=== PATIENT | female | born 1990 | race Caucasian/White ===

== ENCOUNTER → 2016-03-06 | Outpatient (CLI) | payer BC ==
[~2016-03-06] MED LIST: ACET50TA PO; COLA50CA3 PO; IBUP40TA PO; IBUP80TA FT; LEVOTHYROID PO; MULTTAB20 PO; PERCOCET FT; PERCOCET PO; VITAPRTA PO
--- NOTE | 2016-03-06 16:08 | REP ---
OB ULTRASOUND: Real-time sonographic evaluation of the gravid uterus is performed. There is a single living intrauterine gestation. The estimated gestational age is 19 weeks 3 days based on today's ultrasound measurements EDC 07/28/2016. BPD 46 mm = 20 weeks 0 days. HC 171 mm = 19 weeks 5 days. AC 142 mm = 19 weeks 4 day. Femur length 31 mm = 19 weeks 3 days. HC/AC ratio 1.20 within normal range. Estimated weight 297 grams, 49th percentile. Cervix is closed measures 3.5 cm in length. heart rate 139 beats per minute. SEEN/GROSSLY UNREMARKABLE Lateral ventricles Yes Posterior fossa Yes Upper lip Yes Four-chamber heart No LVOT No RVOT No Stomach Yes Cord insertion Yes Three vessel cord Yes Kidneys Yes Bladder Yes Spine Yes position: Vertex Placenta: Anterior and grade 0 with no previa or abruption. Amniotic fluid: Within normal limits. Signed by Chalino Elam MD 03/06/2016 04:29 P
== END ==
LOC: M SMT 12:50
PROVIDERS: ATTEND Advanced Practice Midwife
DX: Z34.82 Encounter for supervision of other normal pregnancy, second trimester (principal)

== ENCOUNTER → 2016-04-10 | Outpatient (CLI) | payer BC ==
--- NOTE | 2016-04-10 15:15 | REP ---
OBSTETRIC SONOGRAPHY: HISTORY: Supervision of followup anatomy. FINDINGS: Scanning through the gravid uterus demonstrates a viable single intrauterine gestation in a breech lie. motion is observed and heart rate is recorder 136 beats per minute. An anterior grade 0 placenta is seen. Amniotic fluid is subjectively normal. Closed cervical length is 4.5 cm. No extrauterine abnormalities observed. There has been appropriate interval growth. No anomaly is seen. The following anatomic structures are identified and felt to be sonographically unremarkable: cranium, choroid plexus, cavum, cerebellum and posterior fossa, lungs, four-chamber heart with left and right ventricular outflow tract views, left-sided stomach, three-vessel cord, kidneys and bladder, spine, upper and lower extremities. Biometry Chart: BPD 6.2 cm = 25 weeks 1 day HC 22.5 cm = 24 weeks 3 days AC 20.2 cm = 24 week 6 days FL 4.3 cm = 24 weeks 0 days HL 4.2 cm = 25 weeks 1 day CD 2.7 cm = 24 weeks 0 days HC/AC ratio normal 1.11 Cephalic index normal 0.78. Estimated weight 708 grams, 1 pound 8 ounces, 46 percentile for 24 weeks 3 days. IMPRESSION: Viable single intrauterine gestation at 24 weeks 1 day by today's composite criteria. Expected gestational age estimate based on prior sonography is 24 weeks 3 days. [place] by prior sonography July 28, 2016. Signed by Ricardo Driver MD 04/10/2016 04:53 P
== END ==
LOC: M SMT 12:47
PROVIDERS: ATTEND Advanced Practice Midwife
DX: Z34.82 Encounter for supervision of other normal pregnancy, second trimester (principal)

== ENCOUNTER → 2016-05-01 | Outpatient (CLI) | payer BC ==
[2016-05-01 13:33] LABS: MEAN CORPUSCULAR HGB CONC 33.4 g/dl (32.0-36.5); MEAN CORPUSCULAR VOLUME 86.8 fl (80.0-96.0); RED CELL DISTRIBUTION WIDTH 12.9 % (11.5-14.5); WHITE BLOOD COUNT 7.6 K/mm3 (4.0-10.0)
== END ==
LOC: M SMT 08:30
PROVIDERS: ATTEND Advanced Practice Midwife
DX: Z34.82 Encounter for supervision of other normal pregnancy, second trimester (principal)

== ENCOUNTER → 2016-06-30 | Outpatient (REF) | payer BC | LOC: M LAB REF 13:10 | PROVIDERS: ATTEND Advanced Practice Midwife | DX: Z34.83 Encounter for supervision of other normal pregnancy, third trimester (principal) ==

== ENCOUNTER 2016-08-05 06:55 | Inpatient (IN) | payer BC, MEDICAID ==
[~2016-08-05] VITALS: Ht 170.2 cm; Wt 107.0 kg
[2016-08-05] VITALS (21 sets, daily range): BP systolic 120–158; BP diastolic 66–95
[2016-08-05] MEDS ORDERED: RANI15TA PO (07:19)
[2016-08-05] MEDS: miSOPROStol 50 MCG 1/2 TAB (S0191) PO SCH ×2 (08:42→13:11)
--- NOTE | 2016-08-05 08:49 | HPE ---
DATE OF ADMISSION: 08/05/2016 Selin is a 26-year-old, 2, para 1-0-0-1, at 41-1/7 weeks gestation with an estimated date of confinement (EDC) of 07/28/2016 based on first trimester ultrasound. She presents to labor and delivery today for induction of labor per consult with Dr. Noemi Sanon due to post-term . She does report some occasional contractions. Denies vaginal bleeding and leakage of fluid. The fetus has been active. care initiated at [facility] in the first trimester. course has been uncomplicated. OBSTETRICAL HISTORY: May 2013, at 40-4/7 weeks gestation, she had a spontaneous vaginal delivery for a 7 pound 2 ounce male. OB LABS: Blood type O+, antibody screen negative. Pap was normal. Rubella immune, VDRL nonreactive. Urine culture no growth. Hepatitis B surface antigen negative, HIV negative. Hepatitis C antibody nonreactive. Gonorrhea and chlamydia negative. She did decline all genetic serum screening labs. Gestational diabetic screening normal at 113 and her GBS is negative. PAST MEDICAL HISTORY: Seasonal allergies, abnormal Pap, childhood varicella. SURGERIES: None. FAMILY HISTORY: Seasonal allergies. SOCIAL HISTORY: The patient is . Her is at bedside and supportive. She is a nonsmoker. Denies alcohol and drug use. No history of sexually transmitted infections and denies history of abuse physical, sexual and emotional. ALLERGIES: NO KNOWN DRUG ALLERGIES. CURRENT MEDICATIONS: - vitamins OBJECTIVE: Temperature 98.9, pulse 82, respirations 18, blood pressure 130/78. She is alert and oriented times three, in no apparent distress. heart rate 140 with moderate variability, positive accelerations observed. No decelerations observed. Contractions every 4-5 minutes. Sterile vaginal exam: 2 cm dilated, 50% effaced, minus 3 station. Membranes are intact. No bloody show with exam. Her abdomen is gravid, cephalic presentation with an estimated weight of 8 pounds. ASSESSMENT: Intrauterine at 41-1/7 weeks gestation, heart rate category 1, post-term . PLAN: Admit patient to labor and delivery. Labs. Out of bed ad kaila. Regular diet at this time. Start misoprostol for cervical ripening 15 mcg every 4 hours. I did review risks to induction that include increased risk for section, intolerance to labor, failed induction. The patient has had all of her questions answered and does desire to proceed with induction at this time. I do anticipate an active labor and a spontaneous vaginal delivery.
[2016-08-05 08:53] LABS: MEAN CORPUSCULAR HEMOGLOBIN 27.2 pg (27.0-33.0); MEAN CORPUSCULAR HGB CONC 33.4 g/dl (32.0-36.5); MEAN CORPUSCULAR VOLUME 81.4 fl (80.0-96.0); RED CELL DISTRIBUTION WIDTH 14.4 % (11.5-14.5); WHITE BLOOD COUNT 7.6 K/mm3 (4.0-10.0)
[2016-08-05] MEDS ORDERED: LR 1,000 ML IV SCH (18:05)
[2016-08-05] MEDS ORDERED: OXYTOCIN DRIP 30 UNITS in APPROPRIATE DILUENT 1 EA IV SCH ×2 (18:15→20:25)
[2016-08-05] MEDS ORDERED: METHYLERGONOVINE MALEATE 0.2 MG TAB PO PRN (20:30)
[2016-08-05] MEDS ORDERED: DIBUCAINE 1% OINTMENT 30GM TOP PRN (20:30)
[2016-08-05] MEDS ORDERED: DOCUSATE SODIUM 100 MG CAP PO PRN (20:30)
[2016-08-05] MEDS ORDERED: MEASLES,MUMPS,RUBELLA VACCINE INJ (MMR-II) (90707) SC SCH (20:30)
[2016-08-05] MEDS ORDERED: LIDOCAINE 1% MDV INJ 50 ML VIAL INFIL ONE (20:30)
[2016-08-05] MEDS ORDERED: RHOGAM 300 MCG (1500 IU) INJ (J2790) IM SCH (20:30)
[2016-08-05] MEDS: IBUPROFEN 800 MG TAB PO PRN (20:31)
--- NOTE | 2016-08-06 05:38 | DN ---
DATE: 08/05/2016 Selin is a 26-year-old 2, para 2-0-0-2 now, who was admitted to labor and delivery for induction of labor due to post-term . Two doses of five oral misoprostol were provided and labor did ensue. She had spontaneous rupture of membranes for clear odorless fluid at 18:39. She progressed to full dilation at 19:34. She pushed to a normal spontaneous vaginal delivery of a live male in occiput anterior (OA) position with restitution to left occiput transverse (LOT) position at 09:36. The shoulders delivered with gentle downward traction and the corpus immediately followed. The was placed on maternal abdomen crying and active. His mouth and nares were bulb suctioned. The cord was clamped time two and cut by the father of the baby. A spontaneous expulsion of intact placenta with three-vessel cord was noted. Uterine hemostasis achieved with intravenous (IV) Pitocin rapid infusion and uterine fundal massage. Estimated blood loss 300 mL. Perineum and vagina were inspected, noted to have a first-degree perineal laceration that was infiltrated with 1% lidocaine and then repaired with 3-0 Rapide in the usual fashion. Kimball male weighed 3910 grams, 8 pounds 10 ounces, scores 8 and 9. Mom is going to breastfeed her son and the family have named him Taqueria. At the close of delivery, lap counts, needle counts and instrument counts were correct and verified.
[2016-08-06 05:55] VITALS: BP 121/71
[2016-08-06] MEDS: IBUPROFEN 800 MG TAB PO PRN ×2 (05:57→20:44)
[2016-08-06] MEDS: PRENATAL VITAMINS CHEWABLE TABLET PO SCH (08:13)
[2016-08-06] MEDS: ACETAMINOPHEN 500 MG TAB PO PRN ×2 (08:14→20:45)
[2016-08-06 18:41] VITALS: BP 137/82
[2016-08-06 20:45] VITALS: BP 137/82
[2016-08-07 06:10] VITALS: BP 111/61
[2016-08-07] MEDS ORDERED: ACET50TA PO (07:44)
[2016-08-07] MEDS ORDERED: COLA100C5 PO (07:44)
[2016-08-07] MEDS ORDERED: IBUP-1114 PO (07:44)
[2016-08-07] MEDS ORDERED: PRENTAB9 PO (07:44)
[2016-08-07] MEDS: PRENATAL VITAMINS CHEWABLE TABLET PO SCH (09:00)
== END 2016-08-07 12:25 | disposition home or self-care (01) | DRG 560 ==
LOC: M LDI 06:55 → M OBS 21:33
PROVIDERS: ADMIT Obstetrics & Gynecology; ATTEND Obstetrics & Gynecology
PROC: 10E0XZZ Delivery of Products of Conception, External Approach (ICD-10-PCS; principal; 2016-08-05)
PROC: 3E0DXGC Introduction of Other Therapeutic Substance into Mouth and Pharynx, External Approach (ICD-10-PCS; 2016-08-05)
PROC: 0HQ9XZZ Repair Perineum Skin, External Approach (ICD-10-PCS; 2016-08-05)
DX: O48.0 Post-term pregnancy (principal); Z37.0 Single live birth; Z3A.41 41 weeks gestation of pregnancy; Z79.899 Other long term (current) drug therapy; O70.0 First degree perineal laceration during delivery

== ENCOUNTER → 2017-03-09 | Outpatient (REF) | payer BC | LOC: M LAB REF 17:11 | DX: J02.9 Acute pharyngitis, unspecified (principal); J06.9 Acute upper respiratory infection, unspecified | CPT/HCPCS: 87077 ==

== ENCOUNTER → 2017-07-13 | Outpatient (REF) | payer BC | LOC: M LAB REF 07-14 09:37 | DX: Z12.4 Encounter for screening for malignant neoplasm of cervix (principal) | CPT/HCPCS: G0123 ==

== ENCOUNTER → 2017-11-04 | Outpatient (CLI) | payer BC | LOC: M CLY 14:48 | DX: M25.552 Pain in left hip (principal) | CPT/HCPCS: 73502 ==

== ENCOUNTER → 2018-04-27 | Outpatient (REF) | payer BC ==
[~2018-04-27] MED LIST changes: +COLA100C5 PO; +IBUP-1114 PO; +MAPA500T2 PO; +PRENTAB9 PO; +RANI15TA PO
[2018-04-28 11:42] LABS: BASO % 0.4 % (0.0-1.0); EOS # 0.2 10^3/uL (0.0-0.50); EOS % 1.6 % (0.0-3.0); HEMATOCRIT 39.4 % (36.0-47.0); HEMOGLOBIN 13.4 g/dl (12.0-15.5); LYMPH # 1.8 10^3/uL (1.5-6.5); LYMPH % 17.4 % (24.0-44.0); MEAN CORPUSCULAR VOLUME 88.1 fl (80.0-96.0); MONO # 0.7 10^3/uL (0.0-0.8); MONO % 6.9 % (0.0-5.0); NEUTROPHILS # 7.5 10^3/uL (1.8-7.7); NEUTROPHILS % 73.3 % (36.0-66.0); PLATELET COUNT, AUTOMATED 201 10^3/uL (150-450); RED BLOOD COUNT 4.47 10^6/uL (4.00-5.40); WHITE BLOOD COUNT 10.2 10^3/uL (4.0-10.0)
[2018-04-28 12:16] LABS: ALBUMIN 3.9 GM/DL (3.2-5.2); ALT/SGPT 24 U/L (12-78); AMYLASE 57 U/L (25-115); BILIRUBIN,TOTAL 0.5 MG/DL (0.2-1.0); BLOOD UREA NITROGEN 13 MG/DL (7-18); CALCIUM LEVEL 8.7 MG/DL (8.5-10.1); CARBON DIOXIDE LEVEL 26 MEQ/L (21-32); CHLORIDE LEVEL 108 MEQ/L (98-107); CREATININE FOR GFR 0.77 MG/DL (0.55-1.30); GLOMERULAR FILTRATION RATE > 60.0 (>60); GLUCOSE, FASTING 84 MG/DL (70-100); LIPASE 157 U/L (73-393); SODIUM LEVEL 141 MEQ/L (136-145); TOTAL PROTEIN 6.8 GM/DL (6.4-8.2)
== END ==
LOC: M SFHCCLAY 15:51
PROVIDERS: ATTEND Nurse Practitioner Family
DX: R10.11 Right upper quadrant pain (principal); J02.9 Acute pharyngitis, unspecified

== ENCOUNTER → 2018-05-02 | Outpatient (CLI) | payer BC ==
--- NOTE | 2018-05-02 09:39 | REP ---
Right upper quadrant sonography: History: However quadrant pain. Evaluate gallbladder. Comparison study: No comparison Findings: Scanning through the right upper quadrant of the abdomen demonstrates a normal sized, thin-walled gallbladder without evidence of stone or polyp. Common bile duct is normal measuring 0.3 cm in greatest diameter. No focal liver lesion is seen. Liver size is normal. No pancreatic abnormality is observed. No right renal abnormality is seen. There is no evidence of ascites. The right kidney measures 11.6 x 6.2 x 5.6 cm. Impression: Negative right upper quadrant sonography. Electronically Signed by Ricardo Driver MD 05/02/2018 09:31 A
== END ==
LOC: M RAD 08:31
PROVIDERS: ATTEND Nurse Practitioner Family
DX: R10.11 Right upper quadrant pain (principal)

== ENCOUNTER → 2018-07-26 | Outpatient (REF) | payer BC ==
[~2018-07-26] MED LIST changes: -ACET50TA PO; -IBUP40TA PO; +MAPA500T17 PO; +OXYC1TAB23 FT; +OXYC1TAB23 PO; -PERCOCET FT; -PERCOCET PO
== END ==
LOC: M LAB REF 17:41
PROVIDERS: ATTEND Advanced Practice Midwife
DX: Z12.4 Encounter for screening for malignant neoplasm of cervix (principal)

== ENCOUNTER 2019-01-11 09:13 | Emergency (ER) | payer BC ==
[~2019-01-11] VITALS: Ht 170.2 cm; Wt 97.7 kg
[2019-01-11 10:08] LABS: BASO % 0.5 % (0.0-1.0); EOS # 0.1 10^3/uL (0.0-0.5); EOS % 1.4 % (0.0-3.0); HEMATOCRIT 40.7 % (36.0-47.0); LYMPH # 1.5 10^3/uL (1.5-5.0); LYMPH % 23.5 % (24.0-44.0); MEAN CORPUSCULAR HGB CONC 34.4 g/dl (32.0-36.5); MEAN CORPUSCULAR VOLUME 87.2 fl (80.0-96.0); MONO # 0.4 10^3/uL (0.0-0.8); MONO % 5.5 % (0.0-5.0); NEUTROPHILS # 4.5 10^3/uL (1.5-8.5); NEUTROPHILS % 68.9 % (36.0-66.0); PLATELET COUNT, AUTOMATED 191 10^3/uL (150-450); RED BLOOD COUNT 4.67 10^6/uL (4.00-5.40); WHITE BLOOD COUNT 6.5 10^3/uL (4.0-10.0)
[2019-01-11 10:23] LABS: ALBUMIN 3.7 GM/DL (3.2-5.2); ALT/SGPT 22 U/L (12-78); BILIRUBIN,DIRECT 0.2 MG/DL (0.0-0.2); BILIRUBIN,TOTAL 0.5 MG/DL (0.2-1.0); LIPASE 85 U/L (73-393); TOTAL PROTEIN 6.6 GM/DL (6.4-8.2)
[2019-01-11 10:40] LABS: HCG, SERUM QUALITATIVE NEGATIVE (NEGATIVE)
--- NOTE | 2019-01-11 10:42 | REP ---
Clinical: Right upper quadrant pain. Technique: Real time boyce scale ultrasound examination using curved array transducer with color evaluation. Findings: Liver and pancreas are normal in contour, size, echogenicity without focal hepatic or pancreatic lesion identified. The gallbladder is normal and without gallstones, wall thickening, or pericholecystic fluid. No biliary ductal dilatation is appreciated and the common bile duct measures 3.8 mm diameter. The right kidney is normal in reniform shape without hydronephrosis and measures 11.4 x 4.7 x 4.7 cm. No ascites. Impression: Normal right upper quadrant ultrasound. Normal gallbladder and biliary system. Electronically Signed by Salbador Reynolds MD 01/11/2019 10:33 A
[2019-01-11 11:01] VITALS: BP 130/78
== END 2019-01-11 11:08 | disposition home or self-care (01) ==
LOC: M ED 09:13
DX: G89.29 Other chronic pain (principal); R10.11 Right upper quadrant pain; K27.9 Peptic ulcer, site unspecified, unspecified as acute or chronic, without hemorrhage or perforation

== ENCOUNTER → 2019-01-24 | Outpatient (CLI) | payer BC ==
--- NOTE | 2019-01-24 11:14 | REP ---
Hepatobiliary scan and gallbladder ejection fraction: History: Right upper quadrant pain Technique: 6.6 mCi of technetium-99m mebrofenin was injected and sequential anterior images are acquired. 65 minutes after the mebrofenin injection, the patient consumed 8 ounces Ensure and an additional 60 minutes of imaging was acquired. Regions of interest are plotted around the gallbladder. Findings: The initial hepatocellular parenchymal uptake phase is normal and homogeneous. Intra- and extra-hepatic bile ducts are labeled by the 10 -minute image. The gallbladder is first labeled on the 10 -minute image. There is normal washout from the liver parenchyma into the gallbladder and small intestine on subsequent images. The gallbladder ejection fraction is 97 %. Values greater than 35 % are considered normal with this technique. Impression: Normal hepatobiliary scan and normal gallbladder ejection fraction. Electronically Signed by Ricardo Driver MD 01/24/2019 11:05 A
== END ==
LOC: M RAD 07:35
PROVIDERS: ATTEND Nurse Practitioner Family
DX: R10.11 Right upper quadrant pain (principal)
CPT/HCPCS: 78227; A9537; J2805

== ENCOUNTER → 2019-02-24 | Outpatient (CLI) | payer BC ==
[2019-02-24 12:50] LABS: H PYLORI QUALITATIVE IgG NEGATIVE (NEGATIVE)
[2019-02-24 13:00] LABS: ALT/SGPT 45 U/L (12-78); BILIRUBIN,DIRECT 0.2 MG/DL (0.0-0.2); BILIRUBIN,TOTAL 0.7 MG/DL (0.2-1.0); TOTAL PROTEIN 7.1 GM/DL (6.4-8.2)
[2019-02-28 08:06] LABS: IGASUB2 218.6 mg/dL (73.2-301.2); IGASUB3 45.7 mg/dL (13.4-97.9); IgA SERUM (part of Subclasses) 262 mg/dL (87-352); TISSUE TRANSGLUTAMINASE IgA <2 U/mL (0-3); UNITSIGA FOR GLIADIN IGA 4 units (0-19); UNITSIGG FOR GLIADIN IGG 3 units (0-19)
== END ==
LOC: M PLALAB 09:28
PROVIDERS: ATTEND Internal Medicine Gastroenterology
DX: R10.13 Epigastric pain (principal); R19.7 Diarrhea, unspecified

== ENCOUNTER → 2019-02-24 | Outpatient (REF) | payer BC ==
[2019-02-24 13:36] LABS: CLOSTRIDIUM DIFFICILE PCR NEGATIVE (NEGATIVE)
== END ==
LOC: M LAB REF 11:49
PROVIDERS: ATTEND Internal Medicine Gastroenterology
DX: R10.13 Epigastric pain (principal); R19.7 Diarrhea, unspecified

== ENCOUNTER 2019-04-21 06:35 | Day surgery (SDC) | payer BC ==
[~2019-04-21] VITALS: Ht 170.2 cm; Wt 92.5 kg
[~2019-04-21 06:35] MED LIST changes: +NS 1,000 ML IV ONE; +YAZ1TAB PO
[2019-04-21] MEDS ORDERED: propofoL 200 MG/20 ML VIAL As Ordered ONE (07:05)
[2019-04-21] MEDS ORDERED: LIDOCAINE 2% INJ 100 MG/5 ML SDV (FOR ANES.) As Ordered ONE (07:05)
--- NOTE | 2019-04-21 07:54 | ROOR ---
Patient Name: Selin Oropeza Procedure Date: 04/21/2019 7:33 AM Date of : 1990 Age: 28 Room: [facility] Gender: Female Note Status: Finalized Procedure: Colonoscopy Indications: Chronic diarrhea, Rectal pain Providers: Joey Talley MD Referring MD: Naima Navas NP Requesting Provider: Medicines: Monitored Anesthesia Care Complications: No immediate complications. Procedure: Pre-Anesthesia Assessment: - Prior to the procedure, a History and Physical was performed, and patient medications and allergies were reviewed. The patient is competent. The risks and benefits of the procedure and the sedation options and risks were discussed with the patient. All questions were answered and informed consent was obtained. Patient identification and proposed procedure were verified by the physician, the nurse and the anesthesiologist in the procedure room. Mental Status Examination: alert and oriented. Airway Examination: normal oropharyngeal airway and neck mobility. Respiratory Examination: clear to auscultation. CV Examination: normal. Prophylactic Antibiotics: The patient does not require prophylactic antibiotics. Prior Anticoagulants: The patient has taken no previous anticoagulant or antiplatelet agents. ASA Grade Assessment: II - A patient with mild systemic disease. After reviewing the risks and benefits, the patient was deemed in satisfactory condition to undergo the procedure. The anesthesia plan was to use monitored anesthesia care (MAC). Immediately prior to administration of medications, the patient was re-assessed for adequacy to receive sedatives. The heart rate, respiratory rate, oxygen saturations, blood pressure, adequacy of pulmonary ventilation, and response to care were monitored throughout the procedure. The physical status of the patient was re-assessed after the procedure. The Colonoscope was introduced through the anus and advanced to the terminal ileum, with identification of the appendiceal orifice and IC valve. The colonoscopy was performed without difficulty. The patient tolerated the procedure well. The quality of the bowel preparation was good. The ileocecal valve, appendiceal orifice, and rectum were photographed. Scope insertion time was 1 minute. Scope withdrawal time was 9 minutes. The total duration of the procedure was 10 minutes. Findings: The perianal and digital rectal examinations were normal. The terminal ileum appeared normal. A 6 mm polyp was found in the ascending colon. The polyp was sessile. The polyp was removed with a cold snare. Resection and retrieval were complete. Verification of patient identification for the specimen was done by the physician and nurse using the patient's name, date and medical record number. Estimated blood loss was minimal. Normal mucosa was found in the entire colon. Biopsies for histology were taken with a cold forceps from the right colon, left colon, transverse colon and rectosigmoid colon for evaluation of microscopic colitis. Non-bleeding external and internal hemorrhoids were found during retroflexion. The hemorrhoids were medium-sized. Impression: - The examined portion of the ileum was normal. - One 6 mm polyp in the ascending colon, removed with a cold snare. Resected and retrieved. - Normal mucosa in the entire examined colon. Biopsied. - Non-bleeding external and internal hemorrhoids. Recommendation: - Patient has a contact number available for emergencies. The signs and symptoms of potential delayed complications were discussed with the patient. Return to normal activities tomorrow. Written discharge instructions were provided to the patient. - High fiber diet. - Continue present medications. - Await pathology results. - Repeat colonoscopy at age 48 for screening purposes. - Telephone GI clinic for pathology results in 2 weeks. - Return to primary care physician. Joey Talley MD Joey Talley MD 04/21/2019 7:54:16 AM Electronically signed by Joey Talley MD Number of Addenda: 0 Note Initiated On: 04/21/2019 7:33 AM Estimated Blood Loss: Estimated blood loss was minimal.
[2019-04-21 08:15] VITALS: BP 134/75
== END 2019-04-21 08:19 | disposition home or self-care (01) ==
LOC: M OPP 06:35
PROVIDERS: ATTEND Internal Medicine Gastroenterology
DX: K52.9 Noninfective gastroenteritis and colitis, unspecified (principal); K62.89 Other specified diseases of anus and rectum; K63.5 Polyp of colon; K64.8 Other hemorrhoids; Z79.899 Other long term (current) drug therapy; Z83.3 Family history of diabetes mellitus; Z80.1 Family history of malignant neoplasm of trachea, bronchus and lung

== ENCOUNTER → 2020-02-23 | Outpatient (REF) | payer BC ==
[~2020-02-23] MED LIST changes: -NS 1,000 ML IV ONE
== END ==
LOC: M SFHCWAGY 13:26
PROVIDERS: ATTEND Advanced Practice Midwife
DX: Z12.4 Encounter for screening for malignant neoplasm of cervix (principal)

== ENCOUNTER → 2020-05-01 | Outpatient (REF) | payer BC ==
[2020-05-01 11:33] LABS: BASO % 0.5 % (0.0-1.0); EOS # 0.1 10^3/uL (0.0-0.5); EOS % 1.4 % (0.0-3.0); HEMATOCRIT 39.1 % (36.0-47.0); HEMOGLOBIN 12.6 g/dl (12.0-15.5); LYMPH # 1.4 10^3/uL (1.5-5.0); LYMPH % 24.3 % (24.0-44.0); MEAN CORPUSCULAR HEMOGLOBIN 25.5 pg (27.0-33.0); MEAN CORPUSCULAR HGB CONC 32.2 g/dl (32.0-36.5); MONO # 0.5 10^3/uL (0.0-0.8); NEUTROPHILS # 3.7 10^3/uL (1.5-8.5); NEUTROPHILS % 65.6 % (36.0-66.0); PLATELET COUNT, AUTOMATED 189 10^3/uL (150-450); RED BLOOD COUNT 4.95 10^6/uL (4.00-5.40); WHITE BLOOD COUNT 5.6 10^3/uL (4.0-10.0)
[2020-05-01 11:50] LABS: HEMOGLOBIN A1c 5.1 %
[2020-05-01 12:05] LABS: ALT/SGPT 31 U/L (12-78); BILIRUBIN,TOTAL 0.5 MG/DL (0.2-1.0); BLOOD UREA NITROGEN 17 MG/DL (7-18); CALCIUM LEVEL 8.4 MG/DL (8.5-10.1); CARBON DIOXIDE LEVEL 27 MEQ/L (21-32); CHLORIDE LEVEL 106 MEQ/L (98-107); CHOLESTEROL LEVEL 166 MG/DL (<200); CHOLESTEROL RISK RATIO 3.254 (<5); CREATININE FOR GFR 0.78 MG/DL (0.55-1.30); FREE T4 0.89 NG/DL (0.76-1.46); GLOMERULAR FILTRATION RATE > 60.0 (>60); GLUCOSE, FASTING 81 MG/DL (70-100); HDL CHOLESTEROL 51 MG/DL (>40); LDL CHOLESTEROL 92 MG/DL (<100); NON-HDL-C 115 MG/DL; POTASSIUM SERUM 4.4 MEQ/L (3.5-5.1); SODIUM LEVEL 140 MEQ/L (136-145); TRIGLYCERIDES LEVEL 116 MG/DL (<150)
== END ==
LOC: M SFHCCLAY 07:58
PROVIDERS: ATTEND Nurse Practitioner Family
DX: E66.9 Obesity, unspecified (principal); Z13.1 Encounter for screening for diabetes mellitus

== ENCOUNTER → 2020-07-29 | Outpatient (REF) | payer BC ==
[2020-07-29 13:54] LABS: HCG, SERUM QUALITATIVE NEGATIVE (NEGATIVE)
[2020-07-29 14:03] LABS: PROLACTIN 6.3 NG/ML
== END ==
LOC: M PLALAB 07:44
PROVIDERS: ATTEND Advanced Practice Midwife
DX: N91.1 Secondary amenorrhea (principal)

== ENCOUNTER → 2024-05-03 | Outpatient (REF) | payer BC ==
[2024-05-03 17:03] LABS: BASO % 0.5 % (0.0-1.0); EOS # 0.2 10^3/uL (0.0-0.5); EOS % 1.9 % (0.0-3.0); HEMATOCRIT 40.6 % (36.0-47.0); HEMOGLOBIN 13.9 g/dl (12.0-15.5); LYMPH % 24.5 % (24.0-44.0); MEAN CORPUSCULAR HEMOGLOBIN 29.2 pg (27.0-33.0); MEAN CORPUSCULAR HGB CONC 34.2 g/dl (32.0-36.5); MEAN CORPUSCULAR VOLUME 85.3 fl (80.0-96.0); MONO # 0.6 10^3/uL (0.0-0.8); MONO % 7.1 % (2.0-8.0); NEUTROPHILS # 5.3 10^3/uL (1.5-8.5); NEUTROPHILS % 65.7 % (36.0-66.0); PLATELET COUNT, AUTOMATED 239 10^3/uL (150-450); RED BLOOD COUNT 4.76 10^6/uL (4.00-5.40)
[2024-05-03 17:09] LABS: ALBUMIN 4.1 G/DL (3.2-5.2); ALKALINE PHOSPHATASE 63 U/L (35-104); ALT/SGPT 20 U/L (7.0-40); AST/SGOT 12 U/L (<34); BILIRUBIN,TOTAL 0.5 MG/DL (0.3-1.2); BLOOD UREA NITROGEN 15 MG/DL (9-23); CALCIUM LEVEL 9.2 MG/DL (8.5-10.1); CARBON DIOXIDE LEVEL 26 MMOL/L (20-31); CHLORIDE LEVEL 108 MMOL/L (98-107); CHOLESTEROL LEVEL 164 MG/DL (<200); CHOLESTEROL RISK RATIO 3.52 (<5); CREATININE FOR GFR 0.76 MG/DL (0.55-1.30); GLOMERULAR FILTRATION RATE > 60.0 (>60); GLUCOSE, FASTING 78 MG/DL (60-100); HDL CHOLESTEROL 46.5 MG/DL (>40); LDL CHOLESTEROL 81.1 MG/DL (<100); NON-HDL-C 117.5 MG/DL; POTASSIUM SERUM 4.3 MMOL/L (3.5-5.1); SODIUM LEVEL 139 MMOL/L (136-145); TOTAL PROTEIN 7.1 G/DL (5.7-8.2); TRIGLYCERIDES LEVEL 182 MG/DL (<150)
[2024-05-03 17:10] LABS: FREE T4 1.01 NG/DL (0.89-1.76)
[2024-05-03 17:37] LABS: HEMOGLOBIN A1c 4.4 % (4.0-6.0)
== END ==
LOC: M SFHCCLAY 11:12
PROVIDERS: ATTEND Nurse Practitioner Family
DX: F41.1 Generalized anxiety disorder (principal); R10.84 Generalized abdominal pain; Z68.35 Body mass index [BMI] 35.0-35.9, adult; E66.812 Obesity, class 2; M79.10 Myalgia, unspecified site